=== PATIENT | male | born 1955 ===

== ENCOUNTER 2018-06-04 18:58 | Inpatient (IN) | payer BC ==
[~2018-06-04] VITALS: Ht 190.5 cm; Wt 136.3 kg
[2018-06-04 19:08] VITALS: BP 122/78; PULSE 79; TEMP 98
[2018-06-04] MEDS ORDERED: MULTI VITAMINS1 TAB PO (19:16)
[2018-06-04] MEDS ORDERED: PRILOSEC 20MG20 MG PO (19:17)
[2018-06-04] MEDS ORDERED: CARAFATE 1GM1 G PO (19:19)
[2018-06-04] MEDS ORDERED: TYLENOL 500MG500 MG PO (19:20)
[2018-06-05] VITALS (13 sets, daily range): BP systolic 98–131; BP diastolic 53–77; PULSE 55–92; TEMP 97.8–98.2
[2018-06-05 07:05] LABS: HEMATOCRIT 41.6 % (42.0-52.0); HEMOGLOBIN 14.1 g/dl (13.5-18.0); MEAN CELL VOLUME 90 fl (80.0-100.0); MEAN CORPUSCULAR HEMOGLOBIN 31 pg (27.0-31.0); MEAN CORPUSCULAR HGB CONC 34 g/dl (33.0-37.0); MEAN PLATELET VOLUME 10.7 fl (7.4-10.4); PLATELET COUNT 150 K/mm3 (130-400); RED BLOOD COUNT 4.63 M/mm3 (4.20-5.60); REDCELL DISTRIBUTION WIDTH-CV 14.2 % (11.5-14.5)
[2018-06-05 07:23] LABS: ALBUMIN 3.7 gm/dL (3.5-5.0); CALCIUM 8.8 mg/dL (8.4-10.2); CREATININE, serum 1.19 mg/dL (0.66-1.25); POTASSIUM 3.7 mmol/L (3.4-5.0); TOTAL PROTEIN 7.1 gm/dL (6.4-8.2)
[2018-06-05 07:53] LABS: BAND 9 % (0-10); LYMPHOCYTE 16 % (20.0-51.0); NEUTROPHILS 65 % (42.0-75.2)
[2018-06-05 07:54] LABS: PLATELET ESTIMATE NORMAL (NORMAL)
[2018-06-05 07:57] LABS: POLYCHROMASIA 1+
[2018-06-06 03:53] VITALS: BP 113/75; PULSE 54; TEMP 98.2
[2018-06-06 07:02] LABS: BASO % 0.2 % (0.0-2.0); GRAN # 11.1 (1.4-6.5); GRAN % 87.6 % (42.2-75.2); HEMATOCRIT 41.5 % (42.0-52.0); HEMOGLOBIN 13.6 g/dl (13.5-18.0); LYMPH # 0.7 (1.2-3.4); LYMPH % 5.5 % (20.0-51.0); MEAN CELL VOLUME 93 fl (80.0-100.0); MEAN CORPUSCULAR HEMOGLOBIN 30 pg (27.0-31.0); MEAN CORPUSCULAR HGB CONC 33 g/dl (33.0-37.0); MEAN PLATELET VOLUME 10.8 fl (7.4-10.4); MONO # 0.8 (0.1-0.6); MONO % 6.3 % (1.7-9.3); PLATELET COUNT 159 K/mm3 (130-400); RED BLOOD COUNT 4.48 M/mm3 (4.20-5.60)
[2018-06-06 07:06] LABS: ALBUMIN 3.6 gm/dL (3.5-5.0); BILIRUBIN,TOTAL 1.6 mg/dL (0.0-1.0); CALCIUM 8.2 mg/dL (8.4-10.2); CREATININE, serum 1.09 mg/dL (0.66-1.25); POTASSIUM 4.1 mmol/L (3.4-5.0); TOTAL PROTEIN 7.2 gm/dL (6.4-8.2)
[2018-06-06 07:54] VITALS: BP 101/65; PULSE 63; TEMP 97.5
[2018-06-06 11:59] VITALS: BP 100/61; PULSE 63; TEMP 99
[2018-06-06] MEDS ORDERED: MOTRIN 600600 MG/TAB PO (14:17)
[2018-06-06] MEDS ORDERED: CIPRO 500MG TA500 MG PO (14:17)
[2018-06-06] MEDS ORDERED: FLAGYL500 MG PO (14:17)
[2018-06-06] MEDS ORDERED: PERCOCET 325 MG1 TA2 PO (14:18)
== END 2018-06-06 16:31 | disposition home or self-care (01) | DRG 419 ==
LOC: SDCO 18:58 → SURG 18:59 → SDCO 21:09 → SURG 21:11
PROVIDERS: Surgery
PROC: BF101ZZ Fluoroscopy of Bile Ducts using Low Osmolar Contrast (ICD-10-PCS; 2018-06-05)
PROC: 0FT44ZZ Resection of Gallbladder, Percutaneous Endoscopic Approach (ICD-10-PCS; principal; 2018-06-05 12:00)
DX: K80.00 Calculus of gallbladder with acute cholecystitis without obstruction (principal); G47.33 Obstructive sleep apnea (adult) (pediatric); I10 Essential (primary) hypertension; E66.9 Obesity, unspecified; Z68.37 Body mass index [BMI] 37.0-37.9, adult
CPT/HCPCS: A9284; J0690; J0744; J1100; J1885; J2270; J2405; J2704; J2765; J3010; J7120; Q9967

== ENCOUNTER → 2018-10-16 | Outpatient (REF) ==
[~2018-10-16] MED LIST: CARAFATE 1GM1 G PO; CIPRO 500MG TA500 MG PO; FLAGYL500 MG PO; MOTRIN 600600 MG/TAB PO; MULTI VITAMINS1 TAB PO; PERCOCET 325 MG1 TA2 PO; PRILOSEC 20MG20 MG PO; TYLENOL 500MG500 MG PO
== END ==
LOC: ZLAB.WCH 16:29
DX: Z01.89 Encounter for other specified special examinations (principal)